=== PATIENT | female | born 1965 | race Caucasian/White ===

== ENCOUNTER → 2018-09-13 | Outpatient (CLI) | payer MEDICARE, MEDICAID | END | disposition home or self-care (01) | LOC: PCVCCLINIC 13:33 | PROVIDERS: ATTEND Internal Medicine | DX: I11.0 Hypertensive heart disease with heart failure (principal); I50.42 Chronic combined systolic (congestive) and diastolic (congestive) heart failure; E11.9 Type 2 diabetes mellitus without complications; I10 Essential (primary) hypertension; M31.0 Hypersensitivity angiitis; K21.9 Gastro-esophageal reflux disease without esophagitis; Z87.891 Personal history of nicotine dependence | CPT/HCPCS: 93005; G0463 ==

== ENCOUNTER → 2018-10-18 | Outpatient (CLI) | payer MEDICARE, MEDICAID | END | disposition home or self-care (01) | LOC: PCVCCLINIC 14:41 | PROVIDERS: ATTEND Internal Medicine | DX: I11.0 Hypertensive heart disease with heart failure (principal); I50.42 Chronic combined systolic (congestive) and diastolic (congestive) heart failure; I42.9 Cardiomyopathy, unspecified; E11.9 Type 2 diabetes mellitus without complications; M31.0 Hypersensitivity angiitis; K21.9 Gastro-esophageal reflux disease without esophagitis; Z87.891 Personal history of nicotine dependence; Z79.84 Long term (current) use of oral hypoglycemic drugs | CPT/HCPCS: G0463 ==

== ENCOUNTER → 2019-01-18 | Outpatient (CLI) | payer MEDICARE, MEDICAID ==
--- NOTE | 2019-01-18 14:25 | PCVCIMAG ---
APPROVED REPORT Study performed: 01/18/2019 13:21:27 EXAM: Comprehensive 2D, Doppler, and color-flow Echocardiogram Patient Location: Echo lab Room #: 2Status: routine BSA: 1.76 HR: 81 bpmBP: 128/84 mmHg Rhythm: NSR Other Information Study Quality: Adequate Risk Factors: Cardiac Risk Factors: HTN, DM Indications Diabetes Cardiomyopathy Hypertension/HDD 2D Dimensions IVSd: 7.84 (7-11mm)LVOT Diam: 20.22 (18-24mm) LVDd: 49.23 mm PWd: 9.09 (7-11mm)Ascending Ao: 28.04 (22-36mm) LVDs: 36.00 (25-40mm) Left Atrium: 33.87 (27-40mm) Aortic Root: 25.45 mm LV Single Plane 4CH: 36.64 % LV Single Plane 2CH: 24.90 % Biplane EF: 30.0 % Volumes Left Atrial Volume (Systole) Single Plane 4CH: 30.41 mLSingle Plane 2CH: 47.37 mL Biplane LA Volume: 42.00 mLLA ESV Index: 24.00 mL/m2 Aortic Valve AoV Peak Chao.: 1.38 m/s AO Peak Gr.: 7.60 mmHgLVOT Max P.00 mmHg LVOT Max V: 0.71 m/s QUINCY Vmax: 1.65 cm2 Mitral Valve E/A Ratio: 0.7 MV Decel. Time: 186.23 ms MV E Max Chao.: 0.56 m/s MV A Chao.: 0.79 m/s IVRT: 85.35 ms TDI Medial E' Chao.: 0.00 m/s Pulmonary Valve PV Peak Chao.: 0.96 m/sPV Peak Gr.: 3.66 mmHg Pulmonary Vein P Vein S: 0.43 m/sP Vein A: 0.35 m/s P Vein D: 0.39 m/sP Vein A Dur.: 100.3 msec P Vein S/D Ratio: 1.10 Tricuspid Valve TR Peak Chao.: 2.95 m/s TR Peak Gr.: 34.78 mmHg TV Vmax: 0.43 m/sPA Pressure: 42.00 mmHg Left Ventricle The left ventricle is normal size. Flattened septum consistent with right ventricular volume and pressure overload. There is normal left ventricular wall thickness. Left ventricular systolic function is moderate to severely decreased. LVEF is 30-35%. Mild diastolic dysfunction is present (impaired relaxation pattern). Right Ventricle Right ventricle is dilated. The right ventricular systolic function is hypokinetic Atria The left atrium size is normal. Right atrium is moderately dilated. Aortic Valve Mild aortic valve sclerosis, trileaflet. No aortic regurgitation is present. There is no aortic valvular stenosis. Mitral Valve The mitral valve is normal in structure. There is no mitral valve regurgitation noted. No evidence of mitral valve stenosis. Tricuspid Valve The tricuspid valve is normal in structure. Moderate tricuspid regurgitation with a PA pressure of 42 mmHg. Pulmonic Valve The pulmonary valve is normal in structure. There is no pulmonic valvular regurgitation. Great Vessels The aortic root is normal in size. IVC is normal in size and collapses >50% with inspiration. Pericardium Small posterior pericardial effusion. <Conclusion> Left ventricular systolic function is moderate to severely decreased. Flattened septum consistent with right ventricular volume and pressure overload. LVEF is 30-35%. Mild diastolic dysfunction Right ventricle is dilated and hypokinetic. The right ventricular systolic function is hypokinetic Mild aortic valve sclerosis, trileaflet. No aortic regurgitation or stenosis. The mitral valve is normal in structure. No mitral valve regurgitation. Pulmonary artery pressure of 42mmHg Small posterior pericardial effusion.
== END | disposition home or self-care (01) ==
LOC: PCVCIMAG 13:04
PROVIDERS: ATTEND Internal Medicine
DX: I34.8 Other nonrheumatic mitral valve disorders (principal); I42.9 Cardiomyopathy, unspecified; I11.0 Hypertensive heart disease with heart failure; I50.42 Chronic combined systolic (congestive) and diastolic (congestive) heart failure; E11.9 Type 2 diabetes mellitus without complications; E78.5 Hyperlipidemia, unspecified; M31.0 Hypersensitivity angiitis; K21.9 Gastro-esophageal reflux disease without esophagitis; Z87.891 Personal history of nicotine dependence
CPT/HCPCS: 36415; 80061; 93005; 93306; G0463

== ENCOUNTER → 2019-04-25 | Outpatient (CLI) | payer MEDICARE, MEDICAID | END | disposition home or self-care (01) | LOC: PCVCCLINIC 15:53 | PROVIDERS: ATTEND Internal Medicine | DX: I11.0 Hypertensive heart disease with heart failure (principal); I50.42 Chronic combined systolic (congestive) and diastolic (congestive) heart failure; I42.9 Cardiomyopathy, unspecified; E11.9 Type 2 diabetes mellitus without complications; E78.5 Hyperlipidemia, unspecified; M31.0 Hypersensitivity angiitis; K21.9 Gastro-esophageal reflux disease without esophagitis; Z87.891 Personal history of nicotine dependence; Z91.041 Radiographic dye allergy status; Z79.899 Other long term (current) drug therapy; Z90.710 Acquired absence of both cervix and uterus | CPT/HCPCS: 93005; G0463 ==